=== PATIENT | female | born 1970 | race African-American/Black ===

== ENCOUNTER 2018-12-14 23:24 | Emergency (ER) | payer BC, OTHER ==
[~2018-12-14] VITALS: Ht 162.6 cm; Wt 62.6 kg
[2018-12-14 23:52] VITALS: BP 134/71
[2018-12-15 00:52] LABS: Urine Bacteria NONE SEEN /hpf (None Seen); Urine Blood 3+ /uL (Negative); Urine Specific Gravity 1.019 (1.001-1.035); Urine WBC 411 /hpf (0 - 5); Urine WBC Clumps PRESENT /hpf (None Seen)
[2018-12-15] MEDS ORDERED: cefTRIAXone SOD 1,000 MG VL IM ONE (02:15)
[2018-12-15] MEDS ORDERED: ACETAMINOPHEN/CODEINE#3 (300/30mg) TAB PO ONE (02:15)
[2018-12-15] MEDS ORDERED: PHENAZOPYRIDINE HCL 100 MG TAB PO ONE (02:15)
== END 2018-12-15 03:30 | disposition home or self-care (01) ==
LOC: ER 23:24
DX: N39.0 Urinary tract infection, site not specified (principal); Z88.6 Allergy status to analgesic agent; Z88.0 Allergy status to penicillin; Z88.2 Allergy status to sulfonamides
CPT/HCPCS: 74176; 81001; 96372; 99284; J0696